=== PATIENT | male | born 1990 | race Caucasian/White ===

== ENCOUNTER 2019-10-03 17:34 | Emergency (ER) | payer OTHER ==
[~2019-10-03] VITALS: Ht 190.5 cm; Wt 104.3 kg
[2019-10-03] MEDS ORDERED: TRUVADA 200 MG1 EACH PO (18:21)
[2019-10-03] MEDS ORDERED: ISENTRESS400 MG PO (18:21)
[2019-10-03 18:50] LABS: CALCIUM 9.2 mg/dL (8.5-10.1)
[2019-10-03 19:20] VITALS: BP 148/88
== END 2019-10-03 19:21 | disposition home or self-care (01) ==
LOC: M.ERS 17:34
PROVIDERS: Emergency Medicine Emergency Medical Services
DX: Z77.21 Contact with and (suspected) exposure to potentially hazardous body fluids (principal); Z90.89 Acquired absence of other organs